=== PATIENT | female | born 1995 | race Caucasian/White ===

== ENCOUNTER 2017-05-22 20:25 | Emergency (ER) | payer SELFPAY ==
[~2017-05-22] VITALS: Ht 162.5 cm; Wt 53.5 kg
[~2017-05-22 20:25] MED LIST: LOMOTIL 0.025 M1 TA1 PO; MOTRIN800 MG PO; PRENATAL1 TA1 PO; ZOFRAN ODT4 MG SL
[2017-05-22 20:56] VITALS: BP 120/72
[2017-05-22 21:19] LABS: BASO # 0.1 10*3/uL (0.0-0.1); BASO % 0.8 % (0.0-1.0); EOS # 0.1 10*3/uL (0.0-0.4); LYMPH # 2.1 10*3/uL (1.3-4.4); LYMPH % 29.1 % (27.0-41.0); MEAN CELL VOLUME 92.2 fl (81.0-99.0); MEAN CORPUSCULAR HGB CONC 32.5 g/dl (33.0-37.0); MEAN PLATELET VOLUME 11.7 fl (9.6-12.3); MONO # 0.8 10*3/uL (0.1-1.0); MONO % 11.2 % (3.0-9.0); NEUT % 56.8 % (47.0-73.0); PLATELET COUNT AUTOMATED 196 10*3/uL (130-400); RED BLOOD COUNT 4.34 10*6/uL (4.10-5.10); RED CELL DISTRI WIDTH 13.3 % (0-14.5); WHITE BLOOD COUNT 7.1 10*3/uL (4.8-10.8)
[2017-05-22 21:22] LABS: BILIRUBIN NEGATIVE (NEGATIVE); BLOOD NEGATIVE (NEGATIVE); CLARITY SL CLOUDY (CLEAR); COLOR YELLOW (YELLOW); GLUCOSE NEGATIVE (NEGATIVE); KETONE TRACE (NEGATIVE); LEUKO ESTERASE TRACE (NEGATIVE); NITRITE NEGATIVE (NEGATIVE); PROTEIN NEGATIVE (NEGATIVE); SPECIFIC GRAVITY >= 1.030 (1.005-1.030); UROBILINOGEN >= 8.0 E.U./dl (0.2-1.0)
[2017-05-22 21:30] LABS: BACTERIA TRACE; EPITHELIAL CELLS TNTC; MUCOUS TRACE; RBC 0-2 rbc/hpf (0-2); URINE REFLEX COMMENT YES (NO)
[2017-05-22 21:34] LABS: ALBUMIN 3.4 gm/dl (3.1-4.5); ALKALINE PHOSPHATASE 45 U/L (45-117); BILIRUBIN, TOTAL 0.4 mg/dl (0.2-1.0); BUN 9 mg/dl (7-24); CARBON DIOXIDE 23 mmol/L (21-32); CHLORIDE 106 mmol/L (98-107); EST GLOM FILT AFRICAN AMERICAN > 60 ml/min; GLUCOSE 57 mg/dL (65-99); POTASSIUM 3.8 mmol/L (3.5-5.1); SGOT/AST 16 IU/L (3-35); SGPT/ALT 17 U/L (12-78); SODIUM 138 mmol/L (136-145)
== END 2017-05-22 23:07 | disposition home or self-care (01) ==
LOC: ED 20:25
PROVIDERS: Student in an Organized Health Care Education/Training Program
DX: O26.891 Other specified pregnancy related conditions, first trimester (principal); R42 Dizziness and giddiness; R10.9 Unspecified abdominal pain; Z3A.08 8 weeks gestation of pregnancy

== ENCOUNTER 2018-04-09 07:17 | Emergency (ER) | payer OTHER ==
[~2018-04-09] VITALS: Ht 162.5 cm; Wt 56.7 kg
[2018-04-09 07:21] VITALS: BP 109/68
== END 2018-04-09 09:10 | disposition home or self-care (01) ==
LOC: ED 07:17
DX: R07.81 Pleurodynia (principal); W19.XXXA Unspecified fall, initial encounter; Y93.89 Activity, other specified; Y92.099 Unspecified place in other non-institutional residence as the place of occurrence of the external cause; Y99.9 Unspecified external cause status

== ENCOUNTER 2025-03-24 19:56 | Emergency (ER) | payer SELFPAY ==
[~2025-03-24] VITALS: Ht 165.1 cm; Wt 54.4 kg
[2025-03-24 20:07] VITALS: BP 125/87
[2025-03-24] MEDS ORDERED: TYLE3UD PO (21:31)
[2025-03-24] MEDS ORDERED: Ondansetron4 MG PO (21:31)
[2025-03-24] MEDS ORDERED: traMADol Hydrochloride 50 MG TAB PO ONE (21:35)
[2025-03-24] MEDS ORDERED: Ondansetron Hydrochloride 4 MG TAB PO ONE (21:40)
== END 2025-03-24 21:33 | disposition home or self-care (01) ==
LOC: ED 19:56
DX: S06.0X0A Concussion without loss of consciousness, initial encounter (principal); R42 Dizziness and giddiness; H53.149 Visual discomfort, unspecified; R11.2 Nausea with vomiting, unspecified; W22.8XXA Striking against or struck by other objects, initial encounter; Y93.89 Activity, other specified; Y92.89 Other specified places as the place of occurrence of the external cause; Y99.8 Other external cause status